=== PATIENT | male | born 1945 | race Caucasian/White ===

== ENCOUNTER → 2017-11-03 10:36 | Emergency (ER) | payer MEDICARE ==
[2017-11-03 10:43] VITALS: BP 126/60
--- NOTE | 2017-11-03 15:34 | RAD ---
Indication: Right foot pain. 3 views of the right foot are reviewed. There is a fracture at the base of the fifth proximal phalanx. Diffuse osteopenia is noted. IMPRESSION: Fracture of the base of the fifth proximal phalanx. Findings were discussed with ALVAREZ Rivas at 1417.
--- NOTE | 2017-11-03 16:20 | ED ---
Lower Extremity - HPI Summary HPI Summary: Patient is a 72 year-old male who presents emergency department for exacerbation of chronic right foot pain. Patient states about 8 years ago he broke his foot and states hes been having issues with it ever since. He does not recall any new falls or injuries but notes increased foot pain over the last 2 days. Symptoms are mild in severity. Walking makes symptoms worse. Rest makes symptoms better. Denies fever, leg swelling, redness, wounds. Symptoms are mild in severity. - History of Current Complaint Chief Complaint: EDExtremityLower Stated Complaint: RT FOOT PAIN Hx Obtained From: Patient Pain Intensity: 7 - Allergies/Home Medications Allergies/Adverse Reactions: Allergies Allergy/AdvReac Type Severity Reaction Status Date / Time Penicillins Allergy Unknown Verified 11/03/17 10:43 Reaction Details PMH/Surg Hx/FS Hx/Imm Hx Previously Healthy: Yes Endocrine/Hematology History: Reports: Hx Diabetes Cardiovascular History: Reports: Hx Coronary Artery Disease, Hx Hypercholesterolemia, Hx Hypertension - TREATED WITH MEDICATION Denies: Hx Pacemaker/ICD Sensory History: Reports: Hx Contacts or Glasses Denies: Hx Hearing Aid Opthamlomology History: Reports: Hx Contacts or Glasses Neurological History: Reports: Hx Transient Ischemic Attacks (TIA), Other Neuro Impairments/Disorders - CVA 2002 Psychiatric History: Denies: Hx Panic Disorder - Surgical History Surgery Procedure, Year, and Place: 3 CARDIAC STENTS. TONSILS. LEFT LEG LUMP REMOVED Infectious Disease History: No Infectious Disease History: Denies: Traveled Outside the [place] in Last 30 Days - Family History Known Family History: Positive: Other - Noncontributory - Social History Occupation: Retired Lives: With Family Alcohol Use: None Substance Use Type: Reports: None Smoking Status (MU): Current Every Day Smoker Type: Cigarettes Have You Smoked in the Last Year: Yes Review of Systems Constitutional: Negative Negative: Fever, Chills Positive: Other - Right foot pain Skin: Negative Neurological: Negative Negative: Weakness, Paresthesia, Numbness All Other Systems Reviewed And Are Negative: Yes Physical Exam Triage Information Reviewed: Yes Vital Signs On Initial Exam: Initial Vitals Temp Pulse Resp BP Pulse Ox 98.1 F 51 16 126/60 99 11/03/17 10:40 11/03/17 10:40 11/03/17 10:40 11/03/17 10:40 11/03/17 10:40 Vital Signs Reviewed: Yes Appearance: Positive: Well-Appearing - Pt. sitting on bed in NAD. present. Skin: Positive: Warm, Dry Head/Face: Positive: Normal Head/Face Inspection Eyes: Positive: Normal Neck: Positive: Supple Musculoskeletal: Positive: Other - No calf tenderness or redness on right. Good pedal pulse. No foot wounds. Diffuse pain to dorsum of foot. Neurological: Positive: Normal, CN Intact II-III Psychiatric: Positive: Affect/Mood Appropriate Procedures - Splinting Right Hand-Made Type: orthoglass Splint: posterior walking Pre-Proc Neuro Vasc Exam: normal Post-Proc Neuro Vasc Exam: normal Diagnostics - Vital Signs Vital Signs Temp Pulse Resp BP Pulse Ox 11/03/17 10:40 98.1 F 51 16 126/60 99 - Laboratory Lab Statement: Any lab studies that have been ordered have been reviewed, and results considered in the medical decision making process. Lower Extremity Course/Dx - Course Course Of Treatment: Pt. presenting with exacerbation of chronic right foot pain. Symptoms of infection or DVT on exam. X-ray reading per radiology shows a nondisplaced proximal fracture of the fifth metatarsal. Foot was splinted. Patient states that he has a walker at home he has been using. Advised to elevate and ice. Tylenol for pain as directed. To call orthopedics office today for follow-up appointment. Patient understands and agrees with plan. - Diagnoses Differential Diagnosis/HQI/PQRI: Positive: Bursitis, Contusion, Fracture (Closed ), Sprain, Strain Provider Diagnoses: Metatarsal fracture Discharge - Sign-Out/Discharge Documenting (check all that apply): Patient Departure - Discharge Plan Condition: Good Disposition: HOME Referrals: Sylvain Pak MD [Primary Care Provider] - - Billing Disposition and Condition Condition: GOOD Disposition: Home
== END | disposition home or self-care (01) ==
LOC: ED 10:36
DX: S92.511A Displaced fracture of proximal phalanx of right lesser toe(s), initial encounter for closed fracture (principal); X58.XXXA Exposure to other specified factors, initial encounter; Y92.9 Unspecified place or not applicable; E11.9 Type 2 diabetes mellitus without complications; I25.10 Atherosclerotic heart disease of native coronary artery without angina pectoris; E78.00 Pure hypercholesterolemia, unspecified; I10 Essential (primary) hypertension; F17.210 Nicotine dependence, cigarettes, uncomplicated; Z86.73 Personal history of transient ischemic attack (TIA), and cerebral infarction without residual deficits
CPT/HCPCS: 99281

== ENCOUNTER 2018-05-13 23:42 | Observation (INO) | payer MEDICARE ==
--- NOTE | 2018-05-14 00:23 | ED ---
HPI Chest Pain - HPI Summary HPI Summary: A 72 y/o male brought in by ambulance presents to [facility] with a chief complaint of chest pain. The patient reports that he has had intermittent chest pain for the past three or four days, once a day. He reports that today he was walking his dog when he felt chest pain. He took NTG and called an ambulance and 10 minutes later when the ambulance arrived he felt better. He denies any dizziness or sweating but reports some nausea, arm weakness and numbness. At triage he rated his pain as a 0/10 in severity. He is a smoker. He reports that he had a chemical stress test done a few years ago. Vital signs while in room HR: 68 bpm, O2 Sat: 97, BP: 150/82. - History of Current Complaint Chief Complaint: EDChestPainROMI Time Seen by Provider: 05/14/18 00:12 Hx Obtained From: Patient, Family/Beet End Supervisor Onset/Duration: Started Hours Ago, Still Present Timing: Intermittent, Lasting Minutes Initial Severity: Moderate Current Severity: None Pain Intensity: 0 Pain Scale Used: 0-10 Numeric Chest Pain Location: Diffuse Chest Pain Radiates: No Character: Other: - unable to describe Aggravating Factor(s): Nothing Alleviating Factor(s): Nothing Associated Signs and Symptoms: Positive: Numbness, Weakness. Negative: Dizziness, Diaphoresis - Allergy/Home Medications Allergies/Adverse Reactions: Allergies Allergy/AdvReac Type Severity Reaction Status Date / Time Penicillins Allergy Unknown Verified 05/14/18 00:03 Reaction Details Home Medications: Home Medications Amlodipine 2.5 mg tab 2.5 mg PO DAILY 05/14/18 [History Confirmed 05/14/18] Touban Solostar Pen (NF) 55 units SUBCUT BEDTIME 05/14/18 [History Confirmed ] metFORMIN* 750 mg PO DAILY 05/14/18 [History Confirmed 05/14/18] PMH/Surg Hx/FS Hx/Imm Hx Endocrine/Hematology History: Reports: Hx Diabetes Cardiovascular History: Reports: Hx Coronary Artery Disease, Hx Hypercholesterolemia, Hx Hypertension - TREATED WITH MEDICATION Denies: Hx Pacemaker/ICD Sensory History: Reports: Hx Contacts or Glasses Denies: Hx Hearing Aid Opthamlomology History: Reports: Hx Contacts or Glasses Neurological History: Reports: Hx Transient Ischemic Attacks (TIA), Other Neuro Impairments/Disorders - CVA 2002 Psychiatric History: Denies: Hx Panic Disorder - Surgical History Surgery Procedure, Year, and Place: 3 CARDIAC STENTS. TONSILS. LEFT LEG LUMP REMOVED Infectious Disease History: No Infectious Disease History: Denies: Traveled Outside the [place] in Last 30 Days - Family History Known Family History: Positive: Other - Noncontributory - Social History Alcohol Use: None Substance Use Type: Reports: None Smoking Status (MU): Current Every Day Smoker Type: Cigarettes Have You Smoked in the Last Year: Yes Review of Systems Negative: Skin Diaphoresis Positive: Chest Pain - [employer] Positive: Nausea Neurological: Negative - dizziness Positive: Weakness, Numbness All Other Systems Reviewed And Are Negative: Yes Physical Exam - Summary Physical Exam Summary: Appearance: Well-appearing, Well-nourished, lying in bed comfortably Skin: Warm, dry, no obvious rash Eyes: sclera anicteric, no conjunctival pallor ENT: mucous membranes moist, pharynx appears normal Neck: Supple, nontender Respiratory: Clear to auscultation, no signs of respiratory distress Cardiovascular: Normal S1, S2. No murmurs. Normal distal pulses in tibial and radial bilaterally. Abdomen: Soft, nontender, normal active bowel sounds present Musculoskeletal: Normal, Strength/ROM Intact Neurological: A&Ox3, awake and alert, mentation is normal, speech is fluent and appropriate Psychiatric: affect is normal, does not appear anxious or depressed Triage Information Reviewed: Yes Vital Signs On Initial Exam: Initial Vitals Temp Pulse Resp BP Pulse Ox 99.2 F 63 16 167/73 97 05/13/18 23:50 05/13/18 23:50 05/13/18 23:50 05/13/18 23:50 05/13/18 23:50 Vital Signs Reviewed: Yes Diagnostics - Vital Signs Vital Signs Temp Pulse Resp BP Pulse Ox 05/14/18 00:11 65 14 150/82 96 05/14/18 00:09 64 25 96 05/13/18 23:50 99.2 F 63 16 167/73 97 - Laboratory Result Diagrams: 05/14/18 00:30 05/15/18 05:18 Lab Statement: Any lab studies that have been ordered have been reviewed, and results considered in the medical decision making process. - Radiology CXR Radiology Interpretation Completed By: ED Physician Summary of Radiographic Findings: No acute disease. Pending official imaging report. - EKG 23:56 Cardiac Rate: NL - 65 bpm EKG Rhythm: Sinus Rhythm Summary of EKG Findings: Normal sinus rhythm at 65 bpm with incomplete RBBB and LVH with secondary repolarization abnormality. No ischemic changes. Similar to EKG done 10/01/15. Chest Pain Course/Dx - Course Course Of Treatment: A 72 y/o male brought in by ambulance presents to [facility] with a chief complaint of chest pain. The patient reports that he has had intermittent chest pain for the past three or four days, once a day. The physical exam was unremarkabe. EKG at 23:56 showed Normal sinus rhythm at 65 bpm with incomplete RBBB and LVH with secondary repolarization abnormality. No ischemic changes. Similar to EKG done 10/01/15. CXR showed no acute disease. Bloodwork and chemistries obtained. INR of 1.55. Given high risk historical factors pt should be admitted for further workup. Case discussed with Dr. Dubon, hospitalist, who accepted the patient for admission. The patient is agreeable with this plan. - Diagnoses Provider Diagnoses: Chest pain - Provider Notifications Discussed Care Of Patient With: Tisha Dubon Time Discussed With Above Provider: 01:30 Instructed by Provider To: Admit As Inpatient Discharge - Sign-Out/Discharge Documenting (check all that apply): Patient Departure - admit All imaging exams completed and their final reports reviewed: Yes Patient Received Moderate/Deep Sedation with Procedure: No - Discharge Plan Condition: Good Disposition: ADMITTED TO [facility] - Billing Disposition and Condition Condition: GOOD Disposition: Admitted to [facility] - Attestation Statements Document Initiated by Nelson: Yes Documenting Scribe: Pako Pennington Provider For Whom Nelson is Documenting (Include Credential): Harjinder Tao MD Scribharjeet Attestation: Pako Garcia, scribed for Harjinder Tao MD on 05/17/18 at 0945. Scribe Documentation Reviewed: Yes Provider Attestation: The documentation as recorded by the Pako orozco accurately reflects the service I personally performed and the decisions made by me, Harjinder Tao MD Status of Scribe Document: Viewed
[2018-05-14 00:38] LABS: ABS Basophils 0.1 10^3/ul (0-0.2); ABS Eosinophils 0.2 10^3/ul (0-0.6); ABS Lymphocytes 1.6 10^3/ul (1.0-4.8); ABS Monocytes 0.8 10^3/ul (0-0.8); ABS Neutrophils 5.8 10^3/ul (1.5-7.7); ABS Nucleated RBC 0 10^3/ul; Eosinophil % 2.6 %; Hematocrit 37 % (36-46); Hemoglobin 12.3 g/dL (14.0-18.0); Lymphocyte % 18.8 %; Mean Corpuscular HGB Conc 34 g/dL (31-36); Mean Corpuscular Hemoglobin 30 pg (27-31); Mean Corpuscular Volume 90 fL (80-94); Mean Platelet Volume 9.4 fL (7.4-10.4); Nucleated Red Blood Cells % 0; Platelet Count 224 10^3/uL (150-450); Red Blood Count 4.06 10^6 /uL (4.18-5.48); Red Cell Distribution Width 14 % (10.5-15); White Blood Count 8.4 10^3/uL (3.5-10.8)
[2018-05-14 00:55] LABS: Albumin 3.8 g/dL (3.2-5.2); Albumin/Globulin Ratio 1.4 (1-3); BUN/Creatinine Ratio 25.7 (8-20); Calcium 8.7 mg/dL (8.6-10.3); EGFR African American 56.9 (>60); Globulin 2.7 g/dL (2-4); Total Bilirubin 0.5 mg/dL (0.2-1.0); Total Protein 6.5 g/dL (6.4-8.9)
[2018-05-14 00:57] LABS: Troponin I 0.03 ng/mL (<0.04)
[2018-05-14 01:06] LABS: Potassium 5.1 mmol/L (3.5-5.0)
[2018-05-14] MEDS ORDERED: Dextrose 50% Syringe 50 ML* 25 GM/50 ML SYRINGE IV PUSH PRN (01:33)
[2018-05-14] MEDS ORDERED: Nitroglycerin TAB 0.4 MG* 0.4 MG TAB SL ONE (01:34)
[2018-05-14] MEDS ORDERED: Acetaminophen TAB* 325 MG PO PRN (01:34)
[2018-05-14] MEDS ORDERED: Insulin LISPRO* 1 UNITS UNIT SUBCUT ONE (02:03)
[2018-05-14 03:26] LABS: INR 1.55 (0.77-1.02)
[2018-05-14] MEDS: Ondansetron INJ* 2 MG/ML VIAL IV SCH ×6 (05:57→21:26)
[2018-05-14] MEDS ORDERED: Enoxaparin(*) 80 MG/0.8 ML SYR SUBCUT SCH (06:00)
[2018-05-14] MEDS: Enoxaparin(*) 80 MG/0.8 ML SYR SUBCUT SCH (06:22)
[2018-05-14] MEDS: Insulin LISPRO* 1 UNITS UNIT SUBCUT SCH ×5 (08:27→21:22)
[2018-05-14] MEDS ORDERED: Metoprolol Tartrate TAB* 25 MG PO SCH (09:00)
[2018-05-14] MEDS: Isosorbide Mononitrate ER TAB* 60 MG PO SCH (09:03)
[2018-05-14] MEDS: FLUoxetine CAP* 20 MG PO SCH (09:03)
[2018-05-14] MEDS: Lisinopril TAB* 10 MG PO SCH (09:03)
[2018-05-14] MEDS: Aspirin 81 mg CHEW TAB* 81 MG TAB.CHEW PO SCH (09:03)
--- NOTE | 2018-05-14 09:51 | HP ---
HISTORY AND PHYSICAL: DATE OF ADMISSION: 05/14/18. CHIEF COMPLAINT: Chest pain. PRIMARY CARE PROVIDER: Dr. Sylvain Pak. COUNSELING SERVICES DIRECTOR: Lyubov Chase, . CODE STATUS: Full. SOURCE OF INFORMATION: HPI is obtained from the patient and medical chart. The patient is an adequa te historian. HISTORY OF PRESENT ILLNESS: This is a 72-year-old male with a past medical history of coronary arter y disease, status post PCI to LAD in 2007 and 2015, insulin- dependent diabetes, hypertension, hyperl ipidemia, CVA in 2002, with subsequent TIAs, on anticoagulation with positive factor V Leiden, CKD st age 2 to 5, and current tobacco user, who is presenting with chest pain. The patient states that for the last 4 days, he has had intermittent substernal chest pain with exertion that remits with rest a nd nitroglycerin. Today, he was walking the dog and again had chest pain. He took nitroglycerin and because of symptoms, had been persistent over the last few days, he decided to call emergency EMS to come and get checked out. His pain is non-radiating substernal roughly 2/10 described as an ache an d not associated with shortness of breath or diaphoresis. EMERGENCY ROOM COURSE: In the ED, his vital signs are stable though hypertensive to 167/73 on arriva l with a heart rate is 66. Temperature 99.2. He is satting 97% on room air. EKG shows normal sinus rhythm with left axis deviation. He has upsloping ST depressions and left naila tricular hypertrophy and repolarization abnormalities that are unchanged from a 2006 EKG. His tropon in initially is 0.03 and other labs are notable for a glucose of 435, creatinine of 1.4. Chest x-ray was done, which showed no active cardiopulmonary disease. The hospitalist team was asked to evaluat e this patient given his high risk history of heart disease. PAST MEDICAL HISTORY: As above, CAD, status post PCI to LAD in 2007 and 2015. Insulin-dependent diab etes, hypertension, hyperlipidemia, CVA in 2002, with subsequent TIA, on anticoagulation with positiv e factor V Leiden disease, CKD stage 2 to 3, and current tobacco use. 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 MEDICATIONS: 1. Amlodipine 5 mg p.o. daily. 2. Metformin 750 mg p.o. daily. 3. Nitroglycerin 0.4 mg sublingual q.5 minutes. 4. Toujeo SoloSTAR 42 units subcutaneously q.h.s. 5. Warfarin 1 mg p.o. daily. 6. Aspirin 81 mg p.o. daily. 7. Atorvastatin 80 mg p.o. nightly. 8. Clopidogrel 75 mg p.o. daily. 9. Fluoxetine 20 mg p.o. daily. 10. Isosorbide mononitrate extended release 60 mg p.o. daily. 11. Lisinopril 10 mg p.o. daily. 12. Metoprolol 25 mg p.o. b.i.d. ALLERGIES: Include PENICILLIN. FAMILY HISTORY: He has siblings with diabetes and heart disease, one from diabetes, mother with diabetes and father from an unknown cancer. 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 He lives with his . He has a 50-pack-yea r history and is a current a pack-a-day smoker. Alcohol use is very rare socially and he denies illi cits. REVIEW OF SYSTEMS: The patient denies fever, chills, or malaise. Denies vision changes, headaches o r sore throat. Denies palpitations, orthopnea, or paroxysmal nocturnal dyspnea. Respiratory: Denie s shortness of breath, cough, or pleuritic chest pain. GI: Denies nausea, vomiting, abdominal pain, diarrhea, or constipation. : Denies dysuria or hematuria. Musculoskeletal: Denies myalgias, ar thralgias or weakness. Skin: Denies any rashes or lesions. Neurologic: Denies any focal weakness o r numbness. Psychiatric: Denies depression and anxiety. Endocrine: Denies polyuria or polydipsia. Heme: Denies bruising, bleeding, or lymphadenopathy. PHYSICAL EXAMINATION GENERAL: He is a pleasant, well-appearing man, in no acute distress, lying in a stretcher. VITAL SIGNS: At the time of physical exam, vital signs are blood pressure of 151/81, heart rate 59, respiratory rate 18, and oxygen saturation is 96% on room air. HEENT: His pupils are equal and reactive. His extraocular muscles are intact. Sclerae anicteric. O ropharynx with moist mucous membranes. NECK: Supple with no cervical or supraclavicular lymphadenopathy. LUNGS: Clear to auscultation bilaterally. CARDIAC: Regular rate and rhythm with no murmurs, rubs or gallops. ABDOMEN: Belly is soft, mildly distended, but nontender with periumbilical hernia. Normoactive bowel sounds and no hepatosplenomegaly. MUSCULOSKELETAL AND EXTREMITIES: He moves all 4 extremities spontaneously. NEUROLOGIC: His cranial nerves II through XII are intact. He has no focal neurologic deficits. He is A and O x3. SKIN: He has no rashes or lesions. DIAGNOSTIC STUDIES/LAB DATA: CBC was done, which shows a white blood cell count of 8.4, hemoglobin 12.3, hematocrit 37, platelets of 224. CMP was done that shows a sodium of 138, potassium of 5.1, ca rbon dioxide 23, BUN 38, creatinine 1.48, glucose of 415. Total bili of 0.5, AST 23, ALT 35, alkalin e phosphatase of 132. Troponin of 0.03 initially. EKG showed normal sinus rhythm with the rate in the 80s, left axis deviation, upsloping ST depression s in II, LVH, and repolarization abnormalities that are unchanged from 2016, and chest x-ray shows no active cardiopulmonary disease. Imaging and EKG were reviewed by myself. ASSESSMENT AND PLAN: This is a 72-year-old male with a past medical history of coronary artery disea se with prior PCIs to LAD in 2007 and 2016, insulin-dependent diabetes, hypertension, prior strokes, and chronic kidney disease who is presenting with chest pain and hyperglycemia. 1. Chest pain: Given the patient's high risk cardiac history, we will rule out acute coronary syndr ome and we will admit on telemetry, trend troponins, and plan for nuclear stress test on Tuesday. 2. Hyperglycemia: Concerning for uncontrolled insulin-dependent diabetes though the patient does sa y he takes his medications. We will check A1c, place him sliding scale insulin and continue his Lant us of 40 units nightly. He states his last dose was just prior to admission. 3. Coronary artery disease: Continue his aspirin, clopidogrel, statin, beta- rosmery. 4. Cerebrovascular accident and subsequent transient ischemic attacks: We will check his INR and co ntinue warfarin at this time and adjust if subtherapeutic. 5. Chronic kidney disease: Currently, creatinine appears to be close to baseline. We will continue to monitor and bolus his fluids if needed. 6. DVT prophylaxis: The patient is currently on therapeutic warfarin and we will continue unless IN R is subtherapeutic. 7. Diet is consistent carbs. 8. Code status is full. TIME SPENT: Thirty five minutes were spent in the planning of this admission with over half of that spent directly at the bedside with the patient, providing direct patient care. The plan of care was reviewed with the patient and his , and they are agreeable to admission for further monitoring to the medical floor. DISPOSITION: This patient is stable for admission to [address] [place] [address]. [id number]/[facility] #: [id number]
[2018-05-14] MEDS: Metoprolol Tartrate TAB* 25 MG PO SCH ×2 (10:20→21:15)
[2018-05-14] MEDS: Clopidogrel TAB* 75 MG PO SCH (11:31)
--- NOTE | 2018-05-14 14:58 | PN ---
Subjective Date of Service: 05/14/18 Interval History: Mr. Chase is feeling better today. He has not had any further episode of chest pain since arriving in the ED. No dizziness, N/V, or diaphoresis. He is concerned about his health and feels as though he should have taken better care of himself in the past. Nursing reports fluctuations in blood glucose. Family History: Unchanged from Admission Social History: Unchanged from Admission Past Medical History: Unchanged from Admission Objective Active Medications: Acetaminophen (Tylenol Tab*) 650 mg PO Q4H PRN FEVER/PAIN Aspirin (Aspirin 81 Mg Chew Tab*) 81 mg PO DAILY [facility] Atorvastatin Calcium (Lipitor*) 80 mg PO 1700 [facility] Clopidogrel Bisulfate (Plavix Tab*) 75 mg PO DAILY [facility] Dextrose (D50w Syringe 50 Ml*) 12.5 gm IV PUSH .FOR FS < 60 - SS PRN FS < 60 Enoxaparin Sodium (Lovenox(*)) 80 mg SUBCUT Q24H [facility] Fluoxetine HCl (Prozac Cap*) 20 mg PO DAILY [facility] Insulin Glargine (Lantus(*)) 40 units SUBCUT Q24H [facility] Insulin Human Lispro (Humalog*) 0 units SUBCUT ACHS [facility]; Protocol Isosorbide Mononitrate (Imdur Er Tab*) 60 mg PO DAILY [facility] Lisinopril (Prinivil Tab*) 10 mg PO DAILY [facility] Metoprolol Tartrate (Lopressor Tab*) 25 mg PO BID [facility] Ondansetron HCl (Zofran Inj*) 4 mg IV Q4H [facility] Warfarin Sodium (Coumadin Tab(*)) 2 mg PO DAILY@1700 [facility]; Protocol Vital Signs - 8 hr 05/14/18 05/14/18 05/14/18 08:00 08:03 12:00 Temperature 97.3 F 98.1 F Pulse Rate 57 59 Respiratory 16 16 16 Rate Blood Pressure 134/56 149/74 (mmHg) O2 Sat by Pulse 96 98 Oximetry Oxygen Devices in Use Now: None Appearance: Elderly male sitting in bed in NAD Eyes: No Scleral Icterus Ears/Nose/Mouth/Throat: Mucous Membranes Moist Neck: NL Appearance and Movements; NL JVP, Trachea Midline Respiratory: Symmetrical Chest Expansion and Respiratory Effort, Clear to Auscultation Cardiovascular: NL Sounds; No Murmurs; No JVD, RRR Abdominal: NL Sounds; No Tenderness; No Distention Extremities: No Edema Neurological: Alert and Oriented x 3 Lines/Tubes/Other Access: Clean, Dry and Intact Peripheral IV Nutrition: Taking PO's Result Diagrams: 05/14/18 00:30 05/14/18 00:30 Assess/Plan/Problems-Billing Assessment: Mr. Chase is a 72 yo M with PMH of CAD s/p stents, DM, CVA, TIA, factor V Leiden, and CKD; who presented to the ED with c/o chest pain and was admitted to rule out ACS. - Patient Problems (1) Chest pain Code(s): R07.9 - CHEST PAIN, UNSPECIFIED Comment: - Four days of intermittent substernal pain alleviated with rest and nitro - Trops negative x3; no EKG changes - Stress test in the AM (2) CAD (coronary artery disease) Code(s): I25.10 - ATHSCL HEART DISEASE OF [place] CORONARY ARTERY W/O ANG PCTRS Comment: - History of PCI to LAD in 2007 and again in 2016 - Continue aspirin, atorvastatin, Imdur ER (3) Diabetes Code(s): E11.9 - TYPE 2 DIABETES MELLITUS WITHOUT COMPLICATIONS Comment: - BG has been labile since admission - A1c 8.8% - Continue Lantus, Lispro SS (4) Hypertension Code(s): I10 - ESSENTIAL (PRIMARY) HYPERTENSION Comment: - Slightly hypertensive, SBP 130-140s - Continue lisinopril, metoprolol (5) Factor V Leiden Code(s): D68.51 - ACTIVATED PROTEIN C RESISTANCE Comment: - INR subtherapeutic - Continue Lovenox, Coumadin (6) Hyperlipidemia Code(s): E78.5 - HYPERLIPIDEMIA, UNSPECIFIED Comment: - Will check lipid panel in the AM - Continue atorvastatin (7) History of CVA (cerebrovascular accident) Code(s): Z86.73 - PRSNL HX OF TIA (TIA), AND CEREB INFRC W/O RESID DEFICITS Comment: - With multiple TIAs since that time - Continue aspirin, Plavix, Coumadin (8) Chronic kidney disease (CKD), stage III (moderate) Code(s): N18.3 - CHRONIC KIDNEY DISEASE, STAGE 3 (MODERATE) Comment: - Creatinine at baseline (9) DVT prophylaxis Comment: - Lovenox bridging to Coumadin (10) Full code status Code(s): Z78.9 - OTHER SPECIFIED HEALTH STATUS Comment: Status and Disposition: Observation for stress test tomorrow. Anticipate d/c home when medically stable , possibly tomorrow pending results of stress test. Attending: Raul Damon
[2018-05-14] MEDS ORDERED: Warfarin TAB(*) 2 MG PO SCH (17:00)
[2018-05-14] MEDS ORDERED: Atorvastatin* 80 MG TAB PO SCH (17:00)
[2018-05-14] MEDS ORDERED: Insulin GLARGINE(*) 1 UNITS UNIT SUBCUT SCH (18:00)
[2018-05-15] MEDS: Ondansetron INJ* 2 MG/ML VIAL IV SCH ×4 (01:28→13:16)
[2018-05-15] MEDS: Enoxaparin(*) 80 MG/0.8 ML SYR SUBCUT SCH (05:22)
[2018-05-15 06:05] LABS: INR 1.67 (0.77-1.02)
[2018-05-15 06:24] LABS: BUN/Creatinine Ratio 25.7 (8-20); Calcium 8.8 mg/dL (8.6-10.3); EGFR African American 62.7 (>60); EGFR Non-African American 51.8 (>60); HDL Cholesterol 34.5 mg/dL; Potassium 4.2 mmol/L (3.5-5.0)
[2018-05-15 06:25] LABS: Troponin I 0.03 ng/mL (<0.04)
[2018-05-15] MEDS ORDERED: Regadenoson* 0.4 MG/5 ML SYRINGE ONE (07:35)
[2018-05-15] MEDS: Insulin LISPRO* 1 UNITS UNIT SUBCUT SCH ×2 (07:39→11:32)
[2018-05-15] MEDS: Metoprolol Tartrate TAB* 25 MG PO SCH ×2 (07:40→10:58)
[2018-05-15] MEDS: FLUoxetine CAP* 20 MG PO SCH (10:59)
[2018-05-15] MEDS: Aspirin 81 mg CHEW TAB* 81 MG TAB.CHEW PO SCH (10:59)
[2018-05-15] MEDS: Clopidogrel TAB* 75 MG PO SCH (10:59)
[2018-05-15] MEDS: Isosorbide Mononitrate ER TAB* 60 MG PO SCH (10:59)
[2018-05-15] MEDS: Lisinopril TAB* 10 MG PO SCH (10:59)
[2018-05-15 12:59] VITALS: BP 125/91
--- NOTE | 2018-05-15 22:30 | DS ---
CC: Dr. Sylvain Pak * DISCHARGE SUMMARY: DATE OF ADMISSION: 05/14/18 DATE OF DISCHARGE: 05/15/18 PRIMARY CARE PROVIDER: Dr. Sylvain Pak. ATTENDING PHYSICIAN: Dr. Aparna Robbins * (dictated by Jessy Mae NP). PRIMARY DIAGNOSIS: 1. Chest pain, noncardiac. SECONDARY DIAGNOSES: 1. Coronary artery disease. 2. Diabetes mellitus type 2. 3. Hypertension. 4. Factor V Leiden. 5. Hyperlipidemia. 6. History of cerebrovascular accident. 7. Chronic kidney disease stage 3. STUDIES WHILE IN THE HOSPITAL: 1. EKG on 05/13/18 shows normal sinus rhythm with a rate of 65, QTc 437, incomplete right bundle branch block, no acute changes. 2. Chest x-ray on 05/14/18 reads as no evidence for acute intrathoracic disease. 3. EKG on 05/15/18 shows normal sinus rhythm with a rate of 72, QTc 420, incomplete right bundle branch block. 4. Nuclear stress test on 05/15/18 reads as findings most consistent with an infarct with mild simona-infarct ischemia present in the cardiac apex and inferior wall. Assessment is low risk. HISTORY OF PRESENT ILLNESS AND HOSPITAL COURSE: Mr. Chase is a 72-year-old male with past medical history of coronary artery disease, status post stents to the LAD in 2007 and 2015, diabetes, CVA, factor V Leiden, and chronic kidney disease , who presented to the emergency room on 05/14/18 with complaints of chest pain. Please see the history and physical by Dr. Dubon for a complete summary of the events leading up to this hospitalization. In short, the patient had gone outside to let his dog out and immediately noted some chest pain. He had noted intermittent substernal chest pain for the previous 4 days that was worse with exertion and alleviated by rest and nitroglycerin. Because of his continued pain, he presented to the emergency room. In the emergency room, he was noted to have an EKG consistent with his baseline and a negative troponin. However, because of his history and risk factors, he was admitted by the hospitalist service for a complete workup. Mr. Chase had no further chest pain or discomfort while in the hospital. He had been up and ambulatory without any pain, diaphoresis, or shortness of breath. He did have flat troponins at 0.03. He had an uneventful day yesterday and had a stress test this morning with results noted above. He was noted to be low risk and therefore, stable for discharge. He has had no arrhythmias on telemetry and his assessment is otherwise benign. Mr. Chase is stable for discharge today, vital signs are as follows: Temp 97.5, heart rate 65, respiratory rate 20, oxygen saturation 99% on room air, blood pressure 125/91. DISCHARGE MEDICATIONS: Changed medication: 1. Warfarin 3 mg p.o. daily today and tomorrow (previously was 2.5 mg daily). Continued medications: 1. Amlodipine 2.5 mg p.o. daily. 2. Aspirin 81 mg p.o. daily. 3. Atorvastatin 80 mg p.o. daily. 4. Clopidogrel 75 mg p.o. daily. 5. Fluoxetine 20 mg p.o. daily. 6. Isosorbide mononitrate 60 mg p.o. daily. 7. Lisinopril 10 mg p.o. daily. 8. Metformin 750 mg p.o. daily. 9. Metoprolol tartrate 25 mg p.o. b.i.d. 10. Nitro 0.4 mg sublingual q.5 minutes p.r.n. chest pain. 11. Toujeo SoloSTAR 55 units subcu at bedtime. DISCHARGE PLAN: Mr. Chase will be discharged home. Activity will be as tolerated. Diet should be heart healthy. Medications are noted above. The patient has been instructed to take an increased dose of Coumadin today and tomorrow as his INR was noted to be 1.67 today. I have ordered an INR to be checked on 05/17/18 with the results to go to his primary care provider for further instruction on Coumadin dosing. He can otherwise continue his usual medications and I have made no further changes. He will need to follow up with his primary care provider in 4 to 7 days and should likely follow up with the interpretative dancer. It sounds as though he has not been following with the interpretative dancer regularly and due to his cardiac history, he would greatly benefit from regular followup. He has been instructed to return to the emergency room or nearest hospital for any worsening of symptoms, shortness of breath, lightheadedness, dizziness, chest discomfort, high fevers, chills, night sweats , loss of consciousness, or any other worrisome signs or symptoms. DISCHARGE CONDITION: Good. DISCHARGE DISPOSITION: Home. This is a summarized report of a complex medical history and hospital stay. For further details, please see the entire medical record. TIME SPENT: Approximately 40 minutes were spent on this discharge. JESSY MAE, WOOD ROUTER [id number]/CPS #: [id number] ASHLIE
== END 2018-05-15 14:10 | disposition home or self-care (01) ==
LOC: ED 23:42 → INTOOBSV 05-14 01:28 → MEDTELE 05-14 01:28
PROVIDERS: ADMIT Internal Medicine; ATTEND Internal Medicine
DX: R07.9 Chest pain, unspecified (principal); I25.10 Atherosclerotic heart disease of native coronary artery without angina pectoris; D68.51 Activated protein C resistance; Z86.73 Personal history of transient ischemic attack (TIA), and cerebral infarction without residual deficits; I12.9 Hypertensive chronic kidney disease with stage 1 through stage 4 chronic kidney disease, or unspecified chronic kidney disease; E11.22 Type 2 diabetes mellitus with diabetic chronic kidney disease; N18.3 Chronic kidney disease, stage 3 (moderate); Z79.82 Long term (current) use of aspirin; Z79.899 Other long term (current) drug therapy; Z79.4 Long term (current) use of insulin; F17.210 Nicotine dependence, cigarettes, uncomplicated; E78.5 Hyperlipidemia, unspecified; Z88.0 Allergy status to penicillin
CPT/HCPCS: 36415; 71045; 78452; 80048; 80053; 80061; 83036; 84484; 85025; 85610; 93005; 93017; 96372; 96374; 99284; A9270-GY; A9502; G0378; J1650; J2405; J2785

== ENCOUNTER 2020-05-07 22:33 | Inpatient (IN) ==
[2020-05-07] MEDS ORDERED: EPINEPHrine SYR 0.1MG/ML 10 ml SYRINGE ONE ×3 (23:02→23:46)
[2020-05-07] MEDS ORDERED: Magnesium Sulfate IV 0.5 GM/ML 2 ml VIAL (1 gm) ONE (23:18)
[2020-05-07] MEDS ORDERED: Sodium Bicarbonate 8.4% SYR 50 ml SYRINGE ONE ×2 (23:18→23:46)
[2020-05-07] MEDS ORDERED: Atropine 0.1 MG/ML 10 ml SYR (1 mg) ONE (23:18)
[2020-05-07] MEDS ORDERED: Calcium CHLORIDE 10% SYRINGE 1 GM/10 ML ONE (23:46)
[2020-05-08] LABS: ABS Basophils 0.1 10^3/ul (0-0.2); ABS Eosinophils 0.2 10^3/ul (0-0.6); ABS Lymphocytes 4.1 10^3/ul (1.0-4.8); ABS Monocytes 0.8 10^3/ul (0-0.8); ABS Neutrophils 6.8 10^3/ul (1.5-7.7); Eosinophil % 1.6 %; Hematocrit 46 % (42-52); Hemoglobin 13.7 g/dL (14.0-18.0); Lymphocyte % 34.3 %; Mean Corpuscular HGB Conc 30 g/dL (31-36); Mean Corpuscular Hemoglobin 30 pg (27-31); Mean Corpuscular Volume 101 fL (80-94); Mean Platelet Volume 9.7 fL (7.4-10.4); Nucleated Red Blood Cells % 0.4; Platelet Count 177 10^3/uL (150-450); Red Cell Distribution Width 15 % (10-15)
[2020-05-08] MEDS ORDERED: Sodium Bicarbonate 8.4% SYR 50 ml SYRINGE ONE ×2 (00:03→02:18)
[2020-05-08 00:07] LABS: Troponin I 0.13 ng/mL (<0.03)
[2020-05-08 00:08] LABS: Albumin 2.4 g/dL (3.2-5.2); Calcium 6.6 mg/dL (8.6-10.3); Magnesium 1.4 mg/dL (1.9-2.7); Potassium 4.2 mmol/L (3.5-5.0); Sodium 140 mmol/L (135-145)
[2020-05-08 00:14] LABS: ALT 25 U/L (7-52); AST 31 U/L (13-39); Albumin/Globulin Ratio 1.1 (1-3); Alkaline Phosphatase 119 U/L (34-104); BUN/Creatinine Ratio 24.6 (8-20); Blood Urea Nitrogen 35 mg/dL (6-24); Creatine Kinase 72 U/L (10-223); EGFR African American 59.3 (>60); Globulin 2.2 g/dL (2-4); Glucose 339 mg/dL (70-100); Total Protein 4.6 g/dL (6.4-8.9)
[2020-05-08 00:16] LABS: Anion Gap 14 mmol/L (2-11); Chloride 116 mmol/L (101-111)
[2020-05-08] MEDS ORDERED: Iodixanol (CONTRAST) 320 MG/ML 100 ML SDV IV ONE (00:43)
[2020-05-08] MEDS ORDERED: Propofol 10 mg/ml 100 ML BTL 100 ML ONE (01:12)
[2020-05-08] MEDS ORDERED: Propofol 10 mg/ml 100 ML BTL 100 ML IV SCH (02:00)
[2020-05-08] MEDS ORDERED: NS 0.9% IV SCH (02:00)
[2020-05-08] MEDS ORDERED: SODIUM BICARB IV SCH (02:00)
[2020-05-08] MEDS ORDERED: Magnesium Sulfate IV 0.5 GM/ML 2 ml VIAL (1 gm) ONE (02:18)
[2020-05-08] MEDS ORDERED: EPINEPHrine SYR 0.1MG/ML 10 ml SYRINGE ONE (02:18)
[2020-05-08 03:10] VITALS: BP 109/49
== END 2020-05-08 02:56 | disposition expired | DRG 297 ==
LOC: ED 22:33 → ICU 05-08 00:20
PROVIDERS: ADMIT Internal Medicine Critical Care Medicine; ATTEND Internal Medicine Critical Care Medicine